=== PATIENT | male | born 1965 | race African-American/Black ===

== ENCOUNTER 2016-09-25 01:13 | Inpatient (IN) | payer MEDICAID ==
[~2016-09-25] VITALS: Ht 177.8 cm; Wt 99.6 kg
[2016-09-25] VITALS (381 sets, daily range): BP systolic 116–145; BP diastolic 67–82; PULSE 70–94; TEMP 97.8–98.9; O2SAT 88–100
[~2016-09-25 01:13] MED LIST: ALBUTEROL0.09 MG/A1 IH; ALLEGRA 180MG180 MG PO; ASTHMA MEDICATION; BACTRIM DS 8001 TAB PO; BP MED UNKNOWN; CHOESTEROL MED; CLEOCIN HCL300 MG PO; COMBIRESP IH; DOXYCYCLINE 10100 MG PO; FLEXERIL 1010 MG/TAB PO; FLOVENT 44MCG I13 GM; HCTZ; HCTZ 25MG25 MG PO; HYGROTON 2525 MG/TAB PO; LEVAQUIN LEVA-750 MG PO; NO HOME MEDICATIONS; NORCO 325 MG-51 TAB PO; NORCO 325 MG-7.1 TAB PO; PEN-VEE K500 MG PO; PERCOCET 325 MG1 TA2 PO; PERCOCET 325 MG1 TA3 PO; PERCR 7.5 PO; PHENERGAN W/CO120 ML PO; PREDNISONE20 MG PO; PROVENTIL0.09 MG/A1 IH; SOME BP MED; ULTRAM 50MG TAB50 MG PO; VALIUM 5MG T5 MG/TAB PO; VENTOLIN0.09 MG; VENTOLIN0.09 MG IH; VOLTAREN 75 DR75 MG PO; ZESTRIL40 MG PO; ZITHROMAX 250M250 MG PO; ZITHROMAX TRI-500 MG PO; ZITHROMAX Z PA250 MG PO; ZOCOR 20MG20 MG PO; ZYRTEC 10MG10 MG PO; [UNRECOGNIZED DRUG - REMARK]; [UNRECOGNIZED DRUG - REMARK]; b/p med
[2016-09-25 01:57] LABS: HEMATOCRIT 44.2 % (42.0-52.0); HEMOGLOBIN 14.2 g/dl (13.5-18.0); MEAN CELL VOLUME 91 fl (80.0-100.0); MEAN CORPUSCULAR HEMOGLOBIN 29 pg (27.0-31.0); MEAN CORPUSCULAR HGB CONC 32 g/dl (33.0-37.0); MEAN PLATELET VOLUME 10.3 fl (7.4-10.4); PLATELET COUNT 224 K/mm3 (130-400); RED BLOOD COUNT 4.86 M/mm3 (4.20-5.60); REDCELL DISTRIBUTION WIDTH-CV 13.8 % (11.5-14.5); WHITE BLOOD COUNT 5.2 K/mm3 (4.8-10.8)
[2016-09-25 02:02] LABS: ADD PATHOLOGY DIFF REVIEW NO
[2016-09-25 02:04] LABS: INR 1.1 (0.8-3.0); PROTHROMBIN TIME 12.2 SECONDS (9.7-12.8)
[2016-09-25 02:09] LABS: ADJUSTED CALCIUM 9.3 mg/dL (8.4-10.2); ALANINE AMINOTRANSFERASE 31 U/L (21-72); ALBUMIN 3.9 gm/dL (3.5-5.0); ALKALINE PHOSPHATASE 75 U/L (50-136); ANION GAP 11 mmol/L (7-16); BLOOD UREA NITROGEN 14 mg/dL (9-20); C-REACTIVE PROTEIN 0.8 mg/dL (0.0-0.9); CALCIUM 9.2 mg/dL (8.4-10.2); CARBON DIOXIDE 27 mmol/L (22-30); CHLORIDE 101 mmol/L (98-107); CREATININE, serum 1.27 mg/dL (0.66-1.25); GLUCOSE 133 mg/dL (74-106); POTASSIUM 3.9 mmol/L (3.4-5.0); SODIUM 140 mmol/L (137-145); TOTAL PROTEIN 7.3 gm/dL (6.4-8.2)
[2016-09-25 02:17] LABS: B-TYPE NATRIURETIC PEPTIDE 50 pg/mL (0-125)
[2016-09-25 02:19] LABS: TROPONIN-I < 0.012 ng/mL (0.000-0.034)
[2016-09-25 02:20] LABS: BAND 50 % (0-10); EOSINOPHIL 2 % (0-4); NEUTROPHILS 32 % (42.0-75.2); TOTAL CELLS COUNTED 100
[2016-09-25 02:21] LABS: PLATELET ESTIMATE NORMAL (NORMAL)
[2016-09-25 02:23] LABS: ERYTHROCYTE SEDIMENTATION RATE 4 mm/hr (0-15)
[2016-09-25] MEDS ORDERED: LIPITOR20 MG PO (02:57)
[2016-09-25] MEDS ORDERED: VENTOLIN0.09 MG IH (02:59)
[2016-09-25 03:09] LABS: VENOUS BLOOD GAS SAO2 74.5 % (60-80); VENOUS BLOOD GAS SITE VENIPUNCTURE
[2016-09-25 05:49] LABS: VENOUS BLOOD GAS SAO2 74.5 % (60-80)
[2016-09-25 06:04] LABS: VENOUS BLOOD GAS SITE VENIPUNCTURE
[2016-09-25 21:10] LABS: AMPHETAMINE URINE NEGATIVE; BARBITURATES URINE NEGATIVE; BENZODIAZEPINES URINE NEGATIVE; BUPRENORPHINE URINE NEGATIVE; METHADONE URINE NEGATIVE; OPIATES URINE POSITIVE; OXYCODONE URINE NEGATIVE; PHENCYCLIDINE URINE NEGATIVE; PROPOXYPHENE URINE NEGATIVE; THC CANNABINOIDS URINE NEGATIVE
[2016-09-26] VITALS (243 sets, daily range): BP systolic 107–147; BP diastolic 60–81; PULSE 69–94; TEMP 97–98.7; O2SAT 80–100
[2016-09-26 05:51] LABS: HEMATOCRIT 37.5 % (42.0-52.0); MEAN CELL VOLUME 92 fl (80.0-100.0); MEAN CORPUSCULAR HGB CONC 32 g/dl (33.0-37.0); MEAN PLATELET VOLUME 10.3 fl (7.4-10.4); PLATELET COUNT 213 K/mm3 (130-400); RED BLOOD COUNT 4.07 M/mm3 (4.20-5.60); REDCELL DISTRIBUTION WIDTH-CV 14.1 % (11.5-14.5); WHITE BLOOD COUNT 10.9 K/mm3 (4.8-10.8)
[2016-09-26 06:03] LABS: ADD PATHOLOGY DIFF REVIEW NO; MEAN CORPUSCULAR HEMOGLOBIN 29 pg (27.0-31.0)
[2016-09-26 06:34] LABS: CALCIUM 8.7 mg/dL (8.4-10.2); CREATININE, serum 1.21 mg/dL (0.66-1.25); POTASSIUM 3.9 mmol/L (3.4-5.0)
[2016-09-26 06:57] LABS: BAND 4 % (0-10); BASOPHIL 1 % (0-2); EOSINOPHIL 4 % (0-4); NEUTROPHILS 68 % (42.0-75.2); TOTAL CELLS COUNTED 100
[2016-09-26 06:58] LABS: HYPOCHROMIA 1+; PLATELET ESTIMATE NORMAL (NORMAL)
[2016-09-27 00:19] VITALS: BP 123/72; PULSE 77; TEMP 16
[2016-09-27 04:42] VITALS: BP 137/82; PULSE 60; TEMP 97.2
[2016-09-27 09:32] VITALS: BP 130/82; PULSE 62; TEMP 97.1
[2016-09-27 12:50] VITALS: BP 138/81; PULSE 83; TEMP 97.5
[2016-09-27 12:53] LABS: BASO % 0.3 % (0.0-2.0); EOS # 0.4 (0.0-0.7); GRAN # 7.1 (1.4-6.5); GRAN % 73.8 % (42.2-75.2); HEMATOCRIT 41.4 % (42.0-52.0); HEMOGLOBIN 13.3 g/dl (13.5-18.0); LYMPH # 1.6 (1.2-3.4); LYMPH % 16.9 % (20.0-51.0); MEAN CELL VOLUME 91 fl (80.0-100.0); MEAN CORPUSCULAR HEMOGLOBIN 29 pg (27.0-31.0); MEAN CORPUSCULAR HGB CONC 32 g/dl (33.0-37.0); MEAN PLATELET VOLUME 10.3 fl (7.4-10.4); MONO # 0.4 (0.1-0.6); MONO % 4.5 % (1.7-9.3); PLATELET COUNT 247 K/mm3 (130-400); RED BLOOD COUNT 4.55 M/mm3 (4.20-5.60); REDCELL DISTRIBUTION WIDTH-CV 14.1 % (11.5-14.5); WHITE BLOOD COUNT 9.6 K/mm3 (4.8-10.8)
[2016-09-27 19:11] VITALS: BP 126/75; PULSE 78; TEMP 97.8
[2016-09-28 00:16] VITALS: BP 136/57; PULSE 71; TEMP 99
[2016-09-28 03:38] VITALS: BP 116/66; PULSE 73; TEMP 98.2
[2016-09-28 08:14] VITALS: BP 144/81; PULSE 87; TEMP 98
[2016-09-28 12:04] VITALS: BP 139/87; PULSE 91; TEMP 98.1
[2016-09-28] MEDS ORDERED: LEVAQUIN 5500 MG/TA1 PO (13:16)
== END 2016-09-28 14:40 | disposition home or self-care (01) | DRG 177 ==
LOC: COL.ER 01:13 → IMCU 03:34 → MEDICAL 03:34
PROVIDERS: Emergency Medicine; Family Medicine; Internal Medicine Pulmonary Disease; Physician Assistant
PROC: 0B9B8ZX Drainage of Left Lower Lobe Bronchus, Via Natural or Artificial Opening Endoscopic, Diagnostic (ICD-10-PCS; principal; 2016-09-28 09:30)
DX: J15.212 Pneumonia due to Methicillin resistant Staphylococcus aureus (principal); J96.00 Acute respiratory failure, unspecified whether with hypoxia or hypercapnia; R04.2 Hemoptysis; G47.33 Obstructive sleep apnea (adult) (pediatric); I10 Essential (primary) hypertension; E78.5 Hyperlipidemia, unspecified; F14.10 Cocaine abuse, uncomplicated; F17.210 Nicotine dependence, cigarettes, uncomplicated
CPT/HCPCS: 99223-AI; 99232-AI; 99233-AI; 99239; J0456; J0696; J2405; J2543; J2704; J3370; J7030; J7050; J7120; Q9967

== ENCOUNTER 2016-10-26 07:52 | Emergency (ER) | payer MEDICAID ==
[~2016-10-26] VITALS: Ht 177.8 cm; Wt 97.7 kg
[~2016-10-26 07:52] MED LIST changes: +LEVAQUIN 5500 MG/TA1 PO; +LIPITOR20 MG PO
[2016-10-26 07:53] VITALS: TEMP 99.8
[2016-10-26 08:59] LABS: BASO % 0.3 % (0.0-2.0); EOS # 0.2 (0.0-0.7); EOS % 2.2 % (0-4.0); GRAN # 5.4 (1.4-6.5); GRAN % 69.2 % (42.2-75.2); HEMATOCRIT 42.4 % (42.0-52.0); HEMOGLOBIN 13.7 g/dl (13.5-18.0); LYMPH # 1.5 (1.2-3.4); LYMPH % 19.5 % (20.0-51.0); MEAN CELL VOLUME 91 fl (80.0-100.0); MEAN CORPUSCULAR HEMOGLOBIN 29 pg (27.0-31.0); MEAN CORPUSCULAR HGB CONC 32 g/dl (33.0-37.0); MEAN PLATELET VOLUME 10.4 fl (7.4-10.4); MONO # 0.7 (0.1-0.6); MONO % 8.5 % (1.7-9.3); PLATELET COUNT 255 K/mm3 (130-400); RED BLOOD COUNT 4.66 M/mm3 (4.20-5.60); REDCELL DISTRIBUTION WIDTH-CV 14.1 % (11.5-14.5); WHITE BLOOD COUNT 7.7 K/mm3 (4.8-10.8)
[2016-10-26 09:20] LABS: ALBUMIN 3.9 gm/dL (3.5-5.0); BILIRUBIN,TOTAL 0.8 mg/dL (0.0-1.0); C-REACTIVE PROTEIN 1.2 mg/dL (0.0-0.9); CALCIUM 8.9 mg/dL (8.4-10.2); CREATININE, serum 1.05 mg/dL (0.66-1.25); POTASSIUM 3.9 mmol/L (3.4-5.0); TOTAL PROTEIN 7.4 gm/dL (6.4-8.2)
[2016-10-26 10:04] LABS: ERYTHROCYTE SEDIMENTATION RATE 10 mm/hr (0-15)
[2016-10-26 10:48] VITALS: BP 146/104; PULSE 80
== END 2016-10-26 10:45 | disposition home or self-care (01) ==
LOC: COL.ER 07:52
PROVIDERS: Nurse Practitioner
DX: S59.801A Other specified injuries of right elbow, initial encounter (principal); X58.XXXA Exposure to other specified factors, initial encounter; M25.511 Pain in right shoulder; I10 Essential (primary) hypertension; F17.210 Nicotine dependence, cigarettes, uncomplicated
CPT/HCPCS: J2270

== ENCOUNTER 2017-02-04 14:17 | Emergency (ER) | payer MEDICAID ==
[2017-02-04 14:26] VITALS: TEMP 96.7
[2017-02-04 15:08] LABS: BASO % 0.3 % (0.0-2.0); EOS # 0.4 (0.0-0.7); EOS % 2.9 % (0-4.0); GRAN # 5.1 (1.4-6.5); GRAN % 41.7 % (42.2-75.2); HEMOGLOBIN 13.6 g/dl (13.5-18.0); LYMPH # 5.6 (1.2-3.4); LYMPH % 45.8 % (20.0-51.0); MEAN CELL VOLUME 95 fl (80.0-100.0); MEAN CORPUSCULAR HEMOGLOBIN 30 pg (27.0-31.0); MEAN CORPUSCULAR HGB CONC 31 g/dl (33.0-37.0); MEAN PLATELET VOLUME 11.2 fl (7.4-10.4); MONO # 1.1 (0.1-0.6); MONO % 8.9 % (1.7-9.3); PLATELET COUNT 320 K/mm3 (130-400); RED BLOOD COUNT 4.61 M/mm3 (4.20-5.60); REDCELL DISTRIBUTION WIDTH-CV 13.8 % (11.5-14.5); WHITE BLOOD COUNT 12.3 K/mm3 (4.8-10.8)
[2017-02-04 15:22] LABS: ADJUSTED CALCIUM 8.7 mg/dL (8.4-10.2); ALANINE AMINOTRANSFERASE 40 U/L (21-72); ALKALINE PHOSPHATASE 81 U/L (50-136); ANION GAP 15 mmol/L (7-16); BILIRUBIN,TOTAL 0.6 mg/dL (0.0-1.0); BLOOD UREA NITROGEN 17 mg/dL (9-20); CALCIUM 8.7 mg/dL (8.4-10.2); CARBON DIOXIDE 24 mmol/L (22-30); CHLORIDE 100 mmol/L (98-107); GLUCOSE 267 mg/dL (74-106); POTASSIUM 3.9 mmol/L (3.4-5.0); SODIUM 139 mmol/L (137-145); TOTAL PROTEIN 7.4 gm/dL (6.4-8.2)
[2017-02-04 15:23] LABS: ACETAMINOPHEN < 10 ug/mL (10-30)
[2017-02-04] MEDS ORDERED: COMBIRESP IH (16:14)
[2017-02-04 19:46] VITALS: BP 114/79; PULSE 75
== END 2017-02-04 19:49 | disposition home or self-care (01) ==
LOC: COL.ER 14:17
PROVIDERS: Emergency Medicine
DX: T40.2X1A Poisoning by other opioids, accidental (unintentional), initial encounter (principal); F32.9 Major depressive disorder, single episode, unspecified
CPT/HCPCS: J2310; J2765; J7030

== ENCOUNTER 2017-05-04 04:12 | Emergency (ER) | payer MEDICAID ==
[~2017-05-04] VITALS: Ht 180.3 cm; Wt 90.9 kg
[2017-05-04 04:17] VITALS: TEMP 98.5
[2017-05-04] MEDS ORDERED: PREDNISONE20 MG PO (05:23)
[2017-05-04] MEDS ORDERED: DOXYCYCLINE 10100 MG PO (05:23)
[2017-05-04 05:37] VITALS: BP 157/88; PULSE 75
== END 2017-05-04 05:37 | disposition home or self-care (01) ==
LOC: COL.ER 04:12
DX: J45.909 Unspecified asthma, uncomplicated (principal); I10 Essential (primary) hypertension; G47.33 Obstructive sleep apnea (adult) (pediatric); F17.210 Nicotine dependence, cigarettes, uncomplicated
CPT/HCPCS: J7512

== ENCOUNTER 2017-12-25 16:13 | Emergency (ER) | payer SELFPAY ==
[~2017-12-25] VITALS: Ht 177.8 cm; Wt 97.7 kg
[2017-12-25 16:32] VITALS: TEMP 98.1
[2017-12-25 16:56] LABS: HEMOGLOBIN 14.2 g/dl (13.5-18.0); MEAN CELL VOLUME 92 fl (80.0-100.0); MEAN CORPUSCULAR HEMOGLOBIN 29 pg (27.0-31.0); MEAN CORPUSCULAR HGB CONC 32 g/dl (33.0-37.0); MEAN PLATELET VOLUME 9.7 fl (7.4-10.4); PLATELET COUNT 267 K/mm3 (130-400); RED BLOOD COUNT 4.88 M/mm3 (4.20-5.60); REDCELL DISTRIBUTION WIDTH-CV 15.6 % (11.5-14.5)
[2017-12-25 17:07] LABS: BAND 50 % (0-10); BILIRUBIN,TOTAL 1.1 mg/dL (0.0-1.0); CALCIUM 8.7 mg/dL (8.4-10.2); CREATININE, serum 3.12 mg/dL (0.66-1.25); EOSINOPHIL 1 % (0-4); LYMPHOCYTE 14 % (20.0-51.0); METAMYELOCYTE 1 % (0-0); NEUTROPHILS 28 % (42.0-75.2); PLATELET ESTIMATE NORMAL (NORMAL); POTASSIUM 3.8 mmol/L (3.4-5.0); TOTAL PROTEIN 7.7 gm/dL (6.4-8.2)
[2017-12-25 17:14] LABS: ARTERIAL BLD GAS TCO2 CT 26.2; ARTERIAL BLOOD GAS HCO3 24.8 meq/L (22-26); ARTERIAL BLOOD GAS PO2 59.2 mmHg (80-100); ARTERIAL BLOOD GAS pH 7.36 (7.35-7.45)
[2017-12-25 17:20] LABS: TROPONIN-I 0.094 ng/mL (0.000-0.034)
[2017-12-25 19:19] LABS: ACETAMINOPHEN < 10 ug/mL (10-30); SALICYLATE < 1.0 mg/dL
[2017-12-25 20:00] VITALS: BP 121/81; PULSE 87
== END 2017-12-25 20:15 | disposition short-term general hospital (02) ==
LOC: COL.ER 16:13
PROVIDERS: Emergency Medicine
DX: T40.601A Poisoning by unspecified narcotics, accidental (unintentional), initial encounter (principal); J18.1 Lobar pneumonia, unspecified organism; J45.909 Unspecified asthma, uncomplicated; F17.210 Nicotine dependence, cigarettes, uncomplicated; N17.9 Acute kidney failure, unspecified; R79.89 Other specified abnormal findings of blood chemistry
CPT/HCPCS: J0696; J2310; J2405; J7030; J7040

== ENCOUNTER 2018-03-01 15:01 | Observation (INO) | payer SELFPAY ==
[2018-03-01] VITALS (434 sets, daily range): BP systolic 127–134; BP diastolic 75–89; PULSE 57–86; TEMP 97.2–97.6; O2SAT 77–100
[~2018-03-01] VITALS: Ht 180.3 cm; Wt 102.5 kg
[2018-03-01 15:18] LABS: BASO % 0.2 % (0.0-2.0); EOS # 0.2 (0.0-0.7); GRAN # 8.7 (1.4-6.5); GRAN % 60.4 % (42.2-75.2); HEMATOCRIT 44.8 % (42.0-52.0); LYMPH # 4.6 (1.2-3.4); LYMPH % 32.1 % (20.0-51.0); MEAN CELL VOLUME 91 fl (80.0-100.0); MEAN CORPUSCULAR HEMOGLOBIN 29 pg (27.0-31.0); MEAN CORPUSCULAR HGB CONC 31 g/dl (33.0-37.0); MEAN PLATELET VOLUME 10.4 fl (7.4-10.4); MONO # 0.8 (0.1-0.6); MONO % 5.8 % (1.7-9.3); PLATELET COUNT 271 K/mm3 (130-400); REDCELL DISTRIBUTION WIDTH-CV 14.1 % (11.5-14.5)
[2018-03-01 15:27] LABS: ARTERIAL BLD GAS O2 SATURATION 99.3 % (92-100); ARTERIAL BLD GAS TCO2 CT 21.2; ARTERIAL BLOOD GAS HCO3 19.5 meq/L (22-26); ARTERIAL BLOOD GAS PCO2 52.7 mmHg (35-45)
[2018-03-01 15:28] LABS: ARTERIAL BLOOD GAS PO2 483.8 mmHg (80-100); ARTERIAL BLOOD GAS pH 7.19 (7.35-7.45)
[2018-03-01 15:30] LABS: COLLECTION METHOD CATHETER
[2018-03-01 15:31] LABS: ALANINE AMINOTRANSFERASE 31 U/L (21-72); ALBUMIN 3.9 gm/dL (3.5-5.0); ALCOHOL(ethanol),MEDICAL 43 mg/dL; ALKALINE PHOSPHATASE 78 U/L (50-136); AST,SGOT 28 U/L (15-37); BLOOD UREA NITROGEN 13 mg/dL (9-20); C-REACTIVE PROTEIN 4.7 mg/dL (0.0-0.9); CALCIUM 8.7 mg/dL (8.4-10.2); CARBON DIOXIDE 23 mmol/L (22-30); CHLORIDE 98 mmol/L (98-107); CREATININE, serum 1.36 mg/dL (0.66-1.25); GLUCOSE 149 mg/dL (74-106); SODIUM 136 mmol/L (137-145); TOTAL PROTEIN 7.3 gm/dL (6.4-8.2)
[2018-03-01 15:32] LABS: POTASSIUM 2.6 mmol/L (3.4-5.0)
[2018-03-01 15:34] LABS: ACETAMINOPHEN < 10 ug/mL (10-30); ANION GAP 15 mmol/L (7-16); SALICYLATE < 1.0 mg/dL
[2018-03-01 15:35] LABS: PH 7 (5-8); SQUAMOUS EPITHELIAL None Seen /hpf; URINE APPEARANCE Clear; URINE BACTERIA None Seen /hpf; URINE BILIRUBIN Negative (NEGATIVE); URINE BLOOD Negative (NEGATIVE); URINE COLOR Yellow; URINE GLUCOSE Negative (NEGATIVE); URINE KETONE Negative (NEGATIVE); URINE LEUKOCYTE ESTERASE Negative (NEGATIVE); URINE NITRATE Negative (NEGATIVE); URINE PROTEIN(semi-quant) 2+ (NEGATIVE); URINE RBC 0-2 /hpf; URINE UROBILINOGEN Negative (NEGATIVE)
[2018-03-01 15:49] LABS: TRICYCLIC ANTIDEPRESS URINE NEGATIVE
[2018-03-01 16:06] LABS: TROPONIN-I 0.017 ng/mL (0.000-0.034)
[2018-03-01 16:37] LABS: ARTERIAL BLD GAS O2 SATURATION 93.2 % (92-100); ARTERIAL BLOOD GAS BASE EXCESS -7.5 (-2-2); ARTERIAL BLOOD GAS HCO3 21.2 meq/L (22-26); ARTERIAL BLOOD GAS PCO2 56.5 mmHg (35-45); ARTERIAL BLOOD GAS PO2 79.3 mmHg (80-100)
[2018-03-01 16:38] LABS: ARTERIAL BLOOD GAS pH 7.19 (7.35-7.45)
[2018-03-01 18:46] LABS: ARTERIAL BLD GAS O2 SATURATION 95.6 % (92-100); ARTERIAL BLOOD GAS BASE EXCESS -4.1 (-2-2); ARTERIAL BLOOD GAS HCO3 23.4 meq/L (22-26); ARTERIAL BLOOD GAS PCO2 52.2 mmHg (35-45); ARTERIAL BLOOD GAS PO2 86.6 mmHg (80-100); ARTERIAL BLOOD GAS pH 7.27 (7.35-7.45)
[2018-03-02] VITALS (902 sets, daily range): BP systolic 118–152; BP diastolic 79–99; PULSE 58–92; TEMP 97.2–98.7; O2SAT 74–100
[2018-03-02 05:19] LABS: GRAN # 6.5 (1.4-6.5); GRAN % 87.8 % (42.2-75.2); HEMATOCRIT 41.3 % (42.0-52.0); HEMOGLOBIN 13.2 g/dl (13.5-18.0); LYMPH # 0.7 (1.2-3.4); LYMPH % 9.1 % (20.0-51.0); MEAN CELL VOLUME 89 fl (80.0-100.0); MEAN CORPUSCULAR HEMOGLOBIN 29 pg (27.0-31.0); MEAN CORPUSCULAR HGB CONC 32 g/dl (33.0-37.0); MEAN PLATELET VOLUME 10.1 fl (7.4-10.4); MONO # 0.2 (0.1-0.6); PLATELET COUNT 223 K/mm3 (130-400); RED BLOOD COUNT 4.62 M/mm3 (4.20-5.60); REDCELL DISTRIBUTION WIDTH-CV 14.3 % (11.5-14.5)
[2018-03-02 05:31] LABS: CALCIUM 8.6 mg/dL (8.4-10.2); CREATININE, serum 0.99 mg/dL (0.66-1.25); POTASSIUM 4.6 mmol/L (3.4-5.0)
[2018-03-02 05:35] LABS: ARTERIAL BLD GAS O2 SATURATION 96.3 % (92-100); ARTERIAL BLOOD GAS BASE EXCESS -1.2 (-2-2); ARTERIAL BLOOD GAS HCO3 25.4 meq/L (22-26); ARTERIAL BLOOD GAS PCO2 50.4 mmHg (35-45); ARTERIAL BLOOD GAS PO2 88.9 mmHg (80-100); ARTERIAL BLOOD GAS pH 7.32 (7.35-7.45)
[2018-03-03 04:22] VITALS: BP 142/78; PULSE 87; TEMP 98.3
[2018-03-03 05:03] LABS: ARTERIAL BLD GAS O2 SATURATION 84.8 % (92-100); ARTERIAL BLD GAS TCO2 CT 29.2; ARTERIAL BLOOD GAS BASE EXCESS 2.8 (-2-2); ARTERIAL BLOOD GAS HCO3 27.8 meq/L (22-26); ARTERIAL BLOOD GAS PCO2 44.5 mmHg (35-45); ARTERIAL BLOOD GAS pH 7.41 (7.35-7.45)
[2018-03-03 05:05] LABS: ARTERIAL BLOOD GAS PO2 45.9 mmHg (80-100)
[2018-03-03 08:04] VITALS: BP 130/81; PULSE 72; TEMP 98.3
[2018-03-03 08:34] LABS: BASO % 0.1 % (0.0-2.0); EOS % 0.1 % (0-4.0); GRAN # 4.8 (1.4-6.5); GRAN % 70.3 % (42.2-75.2); HEMATOCRIT 40.4 % (42.0-52.0); HEMOGLOBIN 13.2 g/dl (13.5-18.0); LYMPH # 1.6 (1.2-3.4); LYMPH % 24.2 % (20.0-51.0); MEAN CELL VOLUME 87 fl (80.0-100.0); MEAN CORPUSCULAR HEMOGLOBIN 28 pg (27.0-31.0); MEAN CORPUSCULAR HGB CONC 33 g/dl (33.0-37.0); MEAN PLATELET VOLUME 10.9 fl (7.4-10.4); MONO # 0.4 (0.1-0.6); MONO % 5.2 % (1.7-9.3); PLATELET COUNT 216 K/mm3 (130-400); RED BLOOD COUNT 4.65 M/mm3 (4.20-5.60); REDCELL DISTRIBUTION WIDTH-CV 14.5 % (11.5-14.5)
[2018-03-03 08:47] LABS: CALCIUM 8.9 mg/dL (8.4-10.2); CREATININE, serum 1.19 mg/dL (0.66-1.25); MAGNESIUM 1.8 mg/dL (1.6-2.3); PHOSPHOROUS 3.1 mg/dL (2.5-4.5); POTASSIUM 3.5 mmol/L (3.4-5.0)
[2018-03-03] MEDS ORDERED: AMOXICILLIN 8751 TAB PO (10:33)
== END 2018-03-03 11:59 | disposition home or self-care (01) ==
LOC: COL.ER 15:01 → ICU 15:57 → MEDICAL 03-02 16:14
PROVIDERS: Emergency Medicine; Hospitalist; Nurse Practitioner Family
DX: T50.7X1A Poisoning by analeptics and opioid receptor antagonists, accidental (unintentional), initial encounter (principal); J96.02 Acute respiratory failure with hypercapnia; F19.10 Other psychoactive substance abuse, uncomplicated; J45.909 Unspecified asthma, uncomplicated; J69.0 Pneumonitis due to inhalation of food and vomit; A41.9 Sepsis, unspecified organism; E87.6 Hypokalemia; I12.9 Hypertensive chronic kidney disease with stage 1 through stage 4 chronic kidney disease, or unspecified chronic kidney disease; N18.9 Chronic kidney disease, unspecified; N17.9 Acute kidney failure, unspecified; G47.33 Obstructive sleep apnea (adult) (pediatric); G89.29 Other chronic pain; F17.210 Nicotine dependence, cigarettes, uncomplicated; Z82.49 Family history of ischemic heart disease and other diseases of the circulatory system
CPT/HCPCS: 99222; 99231-AI; 99232-AI; 99233-AI; 99239; G0378; J1644; J1956; J2310; J2930; J3475; J3480; J7030

== ENCOUNTER 2018-06-09 14:55 | Emergency (ER) | payer SELFPAY ==
[~2018-06-09] VITALS: Ht 177.8 cm; Wt 90.9 kg
[~2018-06-09 14:55] MED LIST changes: +AMOXICILLIN 8751 TAB PO
[2018-06-09 14:56] VITALS: TEMP 98.7
[2018-06-09 15:14] LABS: BASO % 0.3 % (0.0-2.0); EOS # 0.2 (0.0-0.7); EOS % 3.1 % (0-4.0); GRAN # 2.8 (1.4-6.5); GRAN % 45.7 % (42.2-75.2); HEMATOCRIT 43.8 % (42.0-52.0); HEMOGLOBIN 14.2 g/dl (13.5-18.0); LYMPH # 2.5 (1.2-3.4); LYMPH % 40.2 % (20.0-51.0); MEAN CELL VOLUME 90 fl (80.0-100.0); MEAN CORPUSCULAR HEMOGLOBIN 29 pg (27.0-31.0); MEAN CORPUSCULAR HGB CONC 32 g/dl (33.0-37.0); MEAN PLATELET VOLUME 10.1 fl (7.4-10.4); MONO # 0.6 (0.1-0.6); MONO % 10.5 % (1.7-9.3); PLATELET COUNT 268 K/mm3 (130-400); RED BLOOD COUNT 4.85 M/mm3 (4.20-5.60); REDCELL DISTRIBUTION WIDTH-CV 13.8 % (11.5-14.5)
[2018-06-09 15:32] LABS: ALANINE AMINOTRANSFERASE 23 U/L (21-72); ALBUMIN 4.1 gm/dL (3.5-5.0); ALKALINE PHOSPHATASE 87 U/L (50-136); ANION GAP 7 mmol/L (7-16); AST,SGOT 29 U/L (15-37); BILIRUBIN,TOTAL 0.6 mg/dL (0.0-1.0); BLOOD UREA NITROGEN 19 mg/dL (9-20); CARBON DIOXIDE 27 mmol/L (22-30); CHLORIDE 105 mmol/L (98-107); CREATINE KINASE 197 U/L (55-170); CREATININE, serum 1.34 mg/dL (0.66-1.25); GLUCOSE 144 mg/dL (74-106); LIPASE 73 U/L (23-300); SODIUM 139 mmol/L (137-145); TOTAL PROTEIN 7.9 gm/dL (6.4-8.2)
[2018-06-09 15:36] LABS: ALCOHOL(ethanol),MEDICAL < 10 mg/dL
[2018-06-09 15:42] LABS: TROPONIN-I < 0.012 ng/mL (0.000-0.034)
[2018-06-09 16:27] LABS: INR 1.1 (0.8-3.0); PROTHROMBIN TIME 12.7 SECONDS (9.7-12.8)
[2018-06-09 16:40] VITALS: BP 135/85; PULSE 81
== END 2018-06-09 16:47 | disposition left against medical advice (07) ==
LOC: COL.ER 14:55
PROVIDERS: Emergency Medicine
DX: R41.82 Altered mental status, unspecified (principal); R06.89 Other abnormalities of breathing; I10 Essential (primary) hypertension; J45.909 Unspecified asthma, uncomplicated; F17.210 Nicotine dependence, cigarettes, uncomplicated
CPT/HCPCS: J2310

== ENCOUNTER → 2018-07-08 | Outpatient (CLI) | payer SELFPAY | LOC: COL.PUL 08:00 | DX: Z02.71 Encounter for disability determination (principal); F17.210 Nicotine dependence, cigarettes, uncomplicated; I10 Essential (primary) hypertension; G47.30 Sleep apnea, unspecified; R06.02 Shortness of breath ==

== ENCOUNTER → 2018-07-27 | Outpatient (CLI) | payer OTHER | LOC: COL.RAD 09:32 | DX: Z02.71 Encounter for disability determination (principal); M54.9 Dorsalgia, unspecified ==

== ENCOUNTER → 2018-07-28 | Emergency (ER) | payer OTHER ==
[~2018-07-28] VITALS: Ht 185.4 cm; Wt 113.6 kg
[2018-07-28 20:55] LABS: BASO % 0.2 % (0.0-2.0); EOS # 0.1 (0.0-0.7); EOS % 0.8 % (0-4.0); GRAN # 6.2 (1.4-6.5); GRAN % 48.9 % (42.2-75.2); HEMATOCRIT 47.6 % (42.0-52.0); HEMOGLOBIN 14.6 g/dl (13.5-18.0); LYMPH # 4.9 (1.2-3.4); LYMPH % 38.5 % (20.0-51.0); MEAN CELL VOLUME 95 fl (80.0-100.0); MEAN CORPUSCULAR HEMOGLOBIN 29 pg (27.0-31.0); MEAN CORPUSCULAR HGB CONC 31 g/dl (33.0-37.0); MEAN PLATELET VOLUME 10.9 fl (7.4-10.4); MONO # 1.4 (0.1-0.6); PLATELET COUNT 240 K/mm3 (130-400); RED BLOOD COUNT 5.02 M/mm3 (4.20-5.60); REDCELL DISTRIBUTION WIDTH-CV 14.3 % (11.5-14.5)
[2018-07-28 21:02] VITALS: PULSE 0
[2018-07-28 21:05] LABS: INR 1.2 (0.8-3.0); PROTHROMBIN TIME 13.2 SECONDS (9.7-12.8)
[2018-07-28 21:07] LABS: ALANINE AMINOTRANSFERASE 31 U/L (21-72); ALBUMIN 3.9 gm/dL (3.5-5.0); ALKALINE PHOSPHATASE 83 U/L (50-136); ANION GAP 16 mmol/L (7-16); AST,SGOT 37 U/L (15-37); BILIRUBIN,TOTAL 0.6 mg/dL (0.0-1.0); BLOOD UREA NITROGEN 12 mg/dL (9-20); CALCIUM 8.8 mg/dL (8.4-10.2); CARBON DIOXIDE 25 mmol/L (22-30); CHLORIDE 98 mmol/L (98-107); CREATININE, serum 1.57 mg/dL (0.66-1.25); GLUCOSE 240 mg/dL (74-106); MAGNESIUM 2.5 mg/dL (1.6-2.3); PHOSPHOROUS 8.5 mg/dL (2.5-4.5); POTASSIUM 3.4 mmol/L (3.4-5.0); SODIUM 139 mmol/L (137-145); TOTAL PROTEIN 7.6 gm/dL (6.4-8.2)
[2018-07-28 21:08] LABS: PARTIAL THROMBOPLASTIN TIME 29.1 SECONDS (26.0-37.0)
[2018-07-28 21:09] LABS: ACETAMINOPHEN < 10 ug/mL (10-30); ALCOHOL(ethanol),MEDICAL < 10 mg/dL; SALICYLATE < 1.0 mg/dL
[2018-07-28 21:13] LABS: ARTERIAL BLD GAS O2 SATURATION 98.7 % (92-100); ARTERIAL BLD GAS TCO2 CT 20.3; ARTERIAL BLOOD GAS BASE EXCESS -10.2 (-2-2); ARTERIAL BLOOD GAS HCO3 18.6 meq/L (22-26); ARTERIAL BLOOD GAS PCO2 53.2 mmHg (35-45); ARTERIAL BLOOD GAS pH 7.16 (7.35-7.45)
[2018-07-28 21:14] LABS: ARTERIAL BLOOD GAS PO2 241.2 mmHg (80-100)
[2018-07-28 21:19] LABS: TROPONIN-I < 0.012 ng/mL (0.000-0.035)
[2018-07-28 22:25] VITALS: TEMP 93.9
[2018-07-28 22:49] LABS: COLLECTION METHOD CLEAN CATCH
[2018-07-28 23:00] LABS: MUCOUS Present /lpf; PH 7 (5-8); SQUAMOUS EPITHELIAL 0-2 /hpf; URINE APPEARANCE Clear; URINE BACTERIA Rare /hpf; URINE BILIRUBIN Negative (NEGATIVE); URINE BLOOD 2+ (NEGATIVE); URINE COLOR Straw; URINE GLUCOSE 3+ (NEGATIVE); URINE KETONE Negative (NEGATIVE); URINE LEUKOCYTE ESTERASE Negative (NEGATIVE); URINE NITRATE Negative (NEGATIVE); URINE PROTEIN(semi-quant) Negative (NEGATIVE); URINE UROBILINOGEN Negative (NEGATIVE)
[2018-07-28 23:01] LABS: TRICYCLIC ANTIDEPRESS URINE NEGATIVE
== END ==
LOC: COL.ER 20:36
PROVIDERS: Emergency Medicine
DX: I46.9 Cardiac arrest, cause unspecified (principal)
CPT/HCPCS: J0171; J0461; J1265; J2704; J7030; Q9967